=== PATIENT | male | born 1940 | race Caucasian/White ===

== ENCOUNTER 2017-03-15 08:32 | Day surgery (SDC) | payer MEDICARE, MEDICAID ==
[2017-03-09 10:18] VITALS: BMI 29.7
[2017-03-15] MEDS ORDERED: Midazolam 2 MG/2 ML VIAL ONE ×2 (11:34)
[2017-03-15] MEDS ORDERED: Iodixanol 320 MG/ML 100 ML BOTTLE IV ONE (11:37)
[2017-03-15] MEDS ORDERED: Lidocaine 2% Inj (20ml) ONE (11:50)
[2017-03-15] MEDS ORDERED: Sodium Chloride 0.9% 1,000 ML IV ONE (14:25)
[2017-03-15 17:14] VITALS: BP 137/72; PULSE 63; RESP 18; TEMP 97.5; O2SAT 97
== END 2017-03-15 17:24 | disposition home or self-care (01) ==
LOC: C.CATHLAB 08:32
PROVIDERS: ATTEND Internal Medicine Interventional Cardiology
DX: I99.9 Unspecified disorder of circulatory system (principal); I10 Essential (primary) hypertension; C61 Malignant neoplasm of prostate
CPT/HCPCS: 36247; 75625; 75716; 75774; C1766; C1769; C1887; J1644; J2250; J3010; J7040; Q9967